=== PATIENT | female | born 1985 | race American Indian/Alaskan Native ===

== ENCOUNTER 2020-10-12 19:56 | Observation (INO) | payer MEDICARE ==
--- NOTE | 2020-10-12 21:14 | Emergency Department Report ---
ED Abdominal Pain HPI - General Chief Complaint: Abdominal Pain Stated Complaint: RIGHT FLANK PAIN PUI?: No Time Seen by Provider: 10/12/20 21:10 Source: patient, EMS Mode of arrival: Wheelchair Limitations: Physical Limitation - History of Present Illness Initial Comments: Patient is a 35-year-old female that presents emergency room with complaints of flank pain, frequent urination, dysuria, fever. Patient states her symptom started 2 days ago. Patient dates her symptoms worsen. Patient states her pain is a 10 out of 10 pain patient denies chills. Patient denies body aches. Patient denies cough. Patient denies respiratory symptoms. Patient denies chest pain or shortness of breath. Patient states that her flank pain and pain is better with rest and worse with movement. Patient denies recent travel. Patient denies recent international travel. Patient denies exposure to the novel coronavirus. Patient denies sick contacts. Patient denies fever and chills. Patient denies cough. Patient denies diarrhea. Patient denies coming in contact with anybody with symptoms of the novel coronavirus. MD Complaint: flank pain -: Sudden, days(s) Location: bilateral flank Radiation: none Migration to: no migration Severity: severe Severity scale (0 -10): 10 Quality: stabbing Consistency: constant Improves With: rest Worsens With: movement Associated Symptoms: fever, dysuria. denies: nausea, vomiting, diarrhea, chills, constipation, hematemesis, hematochezia - Related Data Home Medications Medication Instructions Recorded Confirmed Last Taken glyBURIDE [Diabeta] 10 mg PO BID 01/26/15 04/29/15 Unknown Insulin Aspart (Nf) [NovoLOG 100 22 units SUB-Q BID 04/29/15 04/29/15 04/28/15 UNITS/ML] 22 units Previous Rx's Medication Instructions Recorded Last Taken Type Acetaminophen/Codeine [Tylenol #3] 1 tab PO TID PRN #15 tab 06/23/15 Unknown Rx Clindamycin [Clindamycin CAP] 600 mg PO BID #28 capsule 06/23/15 Unknown Rx Allergies Allergy/AdvReac Type Severity Reaction Status Date / Time No Known Allergies Allergy Verified 04/29/15 04:27 ED Review of Systems ROS: Stated complaint: RIGHT FLANK PAIN Other details as noted in HPI Constitutional: denies: chills, fever Eyes: denies: eye pain, eye discharge, vision change ENT: denies: ear pain, throat pain Respiratory: denies: cough, shortness of breath, wheezing Cardiovascular: denies: chest pain, palpitations Endocrine: no symptoms reported Gastrointestinal: as per HPI. denies: nausea, diarrhea Genitourinary: as per HPI, dysuria, frequency. denies: discharge Musculoskeletal: denies: back pain, joint swelling, arthralgia Skin: denies: rash, lesions Neurological: denies: headache, weakness, paresthesias Psychiatric: denies: anxiety, depression Hematological/Lymphatic: denies: easy bleeding, easy bruising ED Past Medical Hx - Past Medical History Previous Medical History?: Yes Hx Hypertension: No Hx Diabetes: Yes (03/2011) Hx Deep Vein Thrombosis: No Hx Renal Disease: No Hx Sickle Cell Disease: No Hx Seizures: No Hx Asthma: No Hx HIV: No - Surgical History Past Surgical History?: Yes Additional Surgical History: RBKA - Family History Family history: no significant - Social History Smoking Status: Former Smoker Substance Use Type: None - Medications Home Medications: Home Medications Medication Instructions Recorded Confirmed Last Taken Type glyBURIDE [Diabeta] 10 mg PO BID 01/26/15 04/29/15 Unknown History Insulin Aspart (Nf) [NovoLOG 100 22 units SUB-Q BID 04/29/15 04/29/15 04/28/15 History UNITS/ML] 22 units Acetaminophen/Codeine [Tylenol #3] 1 tab PO TID PRN #15 tab 06/23/15 Unknown Rx Clindamycin [Clindamycin CAP] 600 mg PO BID #28 capsule 06/23/15 Unknown Rx ED Physical Exam - General Limitations: Physical Limitation General appearance: alert, in no apparent distress - Head Head exam: Present: atraumatic, normocephalic - Eye Eye exam: Present: normal appearance - ENT ENT exam: Present: mucous membranes moist - Neck Neck exam: Present: normal inspection - Respiratory Respiratory exam: Present: normal lung sounds bilaterally. Absent: respiratory distress - Cardiovascular Cardiovascular Exam: Present: regular rate, normal rhythm. Absent: systolic murmur, diastolic murmur, rubs, gallop - GI/Abdominal GI/Abdominal exam: Present: soft, tenderness (Bilateral flank tenderness.), normal bowel sounds - Rectal Rectal exam: Present: deferred - Extremities Exam Extremities exam: Present: normal inspection - Back Exam Back exam: Present: normal inspection, tenderness, CVA tenderness (R), CVA tenderness (L) - Neurological Exam Neurological exam: Present: alert, oriented X3 - Psychiatric Psychiatric exam: Present: normal affect, normal mood - Skin Skin exam: Present: warm, dry, intact, normal color. Absent: rash ED Course Vital Signs 10/12/20 10/12/20 20:30 23:28 Temperature 100.7 F H 98.5 F Pulse Rate 108 H 99 H Respiratory 18 18 Rate Blood Pressure 142/93 Blood Pressure 108/75 [Left] O2 Sat by Pulse 99 100 Oximetry - Reevaluation(s) Reevaluation #1: Initial valuation done. Patient was given fluids and pain medications and antibiotics. Clinically patient has a pyelonephritis. I discussed plan of care with patient. Patient agrees with plan of care. 10/12/20 21:10 Reevaluation #2: Patient states that the pain is better. Patient's vital signs stable. 10/12/20 22:11 Reevaluation #3: I discussed all results with patient. I discussed plan of care with patient. Patient agrees with plan of care and admission. Patient to be admitted to the hospitalist service. 10/13/20 00:11 - Consultations Consultation #1: Hospitalist consulted for admission. Hospitalist to admit patient. 10/13/20 00:12 ED Medical Decision Making - Lab Data Result diagrams: 10/12/20 20:55 10/12/20 20:55 - Radiology Data Radiology results: report reviewed CT ABDOMEN AND PELVIS WITH CONTRAST INDICATION / CLINICAL INFORMATION: flank pain. TECHNIQUE: Axial CT images were obtained through the abdomen and pelvis after 100 mL Omnipaque [address] scans at this location are performed using CT dose reduction for ALARA by means of automated exposure control. COMPARISON: None available. FINDINGS: LOWER CHEST: No significant abnormality. LIVER: No significant abnormality. BILIARY SYSTEM: No significant abnormality. PANCREAS: No significant abnormality. SPLEEN: No significant abnormality. ADRENALS: No significant abnormality. KIDNEYS and URETERS: There is diffuse urothelial thickening and enhancement throughout both ureters with associated periureteric stranding. The kidneys maintain normal parenchymal enhancement, without evidence for lesion or fluid collection. No radiopaque stones are identified. There are bilateral extrarenal pelvis, but no hydronephrosis. STOMACH / BOWEL: No significant abnormality. PERITONEUM: No free fluid. No free air. No fluid collection. LYMPH NODES: No significant adenopathy. VASCULAR STRUCTURES: No significant abnormality. URINARY BLADDER: There is diffuse wall thickening of the urinary bladder with adjacent stranding. REPRODUCTIVE ORGANS: A 3 cm right adnexal cyst is most likely physiologic. ADDITIONAL FINDINGS: None. SKELETAL SYSTEM: No significant abnormality. IMPRESSION: 1. Findings most compatible with cystitis with ascending urinary tract infection involving the length of both ureters. - Medical Decision Making Patient is a 35-year-old female that presents emergency room with complaints of dysuria, flank pain and fever. Patient's symptoms are worsening prior to coming to the emergency room. Patient given fluids, pain meds and antibiotics and her pain improved and her fever reduced. Patient had labs done which were consistent with a severe UTI and elevated WBC. Patient's chemistry essentially unremarkable except for hyperglycemia. Patient had a CT scan of the abdomen which shows bilateral pyelonephritis. Patient admitted to the hospitalist service for further evaluation and treatment. - Differential Diagnosis Pyelonephritis, UTI, fever, Critical Care Time: Yes Critical care time in (mins) excluding proc time.: 35 Critical care attestation.: If time is entered above; I have spent that time in minutes in the direct care of this critically ill patient, excluding procedure time. Critical Care Time: 35 minutes ED Disposition Clinical Impression: Pyelonephritis, Flank pain, Hyperglycemia UTI (urinary tract infection) Qualifiers: Urinary tract infection type: acute pyelonephritis Qualified Code(s): N10 - Acute pyelonephritis Fever Qualifiers: Fever type: unspecified Qualified Code(s): R50.9 - Fever, unspecified Disposition: DC-09 OP ADMIT IP TO THIS HOSP Is pt being admited?: Yes Does the pt Need Aspirin: No Condition: Critical Instructions: Abdominal Pain (ED) Time of Disposition: 00:08
[2020-10-12] MEDS ORDERED: KETOROLAC 30 MG/1 ML INJ IV ONE (21:16)
[2020-10-12] MEDS ORDERED: HYDROmorphone 1 MG/1 ML INJ IV ONE (21:16)
[2020-10-12] MEDS ORDERED: ONDANSETRON 4 MG/2 ML INJ IV ONE (21:16)
[2020-10-12] MEDS: SODIUM CHLORIDE 0.9% 1000 ML 1,000 ML IV ONE ×2 (21:32→22:20)
[2020-10-12 21:39] LABS: Alanine Aminotransferase 6 units/L (7-56); Blood Urea Nitrogen 9 mg/dL (7-17); Calcium 9.3 mg/dL (8.4-10.2); Hemolysis Index 9
[2020-10-12 21:40] LABS: Bacteria,Urine 1+ /HPF (Negative); Bilirubin,Urine NEG (Negative); Blood,Urine MOD (Negative); Color,Urine Yellow (Yellow); Mucus,Urine FEW /HPF; Urobilinogen,Urine < 2.0 mg/dL (<2.0)
[2020-10-12 21:42] LABS: HCG Qualitative,Urine Negative (Negative); WBC,Urine > 182.0 /HPF (0.0-6.0)
[2020-10-12 21:43] LABS: Basophils % (Auto) 0.3 % (0.0-1.8); Eosinophils % (Auto) 0.2 % (0.0-4.3); Hematocrit 39.3 % (30.3-42.9); Hemoglobin 12.8 gm/dl (10.1-14.3); Lymphocytes # (Auto) 1.7 K/mm3 (1.2-5.4); Lymphocytes % (Auto) 12.1 % (13.4-35.0); Mean Corpuscular HGB Conc 32 % (30-34); Mean Corpuscular Volume 86 fl (79-97); Monocytes # (Auto) 0.9 K/mm3 (0.0-0.8); Monocytes % (Auto) 6.6 % (0.0-7.3); Platelet Count 395 K/mm3 (140-440); Red Blood Count 4.56 M/mm3 (3.65-5.03); Red Cell Distribution Width 13.9 % (13.2-15.2)
[2020-10-12 21:49] LABS: BUN/Creatinine Ratio 15
[2020-10-12] MEDS ORDERED: PIPERACIL/TAZOBACTA 4.5/NS 100 4.5 GM/100 ML VIAL IV ONE (22:10)
--- NOTE | 2020-10-12 23:09 | Cat Scan Report ---
CT ABDOMEN AND PELVIS WITH CONTRAST INDICATION / CLINICAL INFORMATION: flank pain. TECHNIQUE: Axial CT images were obtained through the abdomen and pelvis after 100 mL Omnipaque [address] scans at this location are performed using CT dose reduction for ALARA by means of automated exposure control. COMPARISON: None available. FINDINGS: LOWER CHEST: No significant abnormality. LIVER: No significant abnormality. BILIARY SYSTEM: No significant abnormality. PANCREAS: No significant abnormality. SPLEEN: No significant abnormality. ADRENALS: No significant abnormality. KIDNEYS and URETERS: There is diffuse urothelial thickening and enhancement throughout both ureters w ith associated periureteric stranding. The kidneys maintain normal parenchymal enhancement, without e vidence for lesion or fluid collection. No radiopaque stones are identified. There are bilateral extr arenal pelvis, but no hydronephrosis. STOMACH / BOWEL: No significant abnormality. PERITONEUM: No free fluid. No free air. No fluid collection. LYMPH NODES: No significant adenopathy. VASCULAR STRUCTURES: No significant abnormality. URINARY BLADDER: There is diffuse wall thickening of the urinary bladder with adjacent stranding. REPRODUCTIVE ORGANS: A 3 cm right adnexal cyst is most likely physiologic. ADDITIONAL FINDINGS: None. SKELETAL SYSTEM: No significant abnormality. IMPRESSION: 1. Findings most compatible with cystitis with ascending urinary tract infection involving the length of both ureters. Signer Name: Zena Mar MD Signed: 10/12/2020 11:05 PM Workstation Name: [id number]
[2020-10-13] MEDS ORDERED: ONDANSETRON 4 MG/2 ML INJ IV PRN (01:52)
[2020-10-13] MEDS ORDERED: ACETAMINOPHEN 500 MG TAB PO PRN (01:53)
[2020-10-13] MEDS ORDERED: DEXTROSE 50% IN WATER (25GM) 50 ML SYRINGE IV PRN (01:54)
[2020-10-13] MEDS: SODIUM CHLORIDE 0.9% 1000 ML 1,000 ML IV SCH ×2 (03:27→10:50)
[2020-10-13] MEDS: HEPARIN 5,000 UNIT/1 ML VIAL SUB-Q SCH ×2 (03:30→09:54)
[2020-10-13] MEDS: MORPHINE 2 MG/1 ML INJ IV PRN ×3 (03:40→15:29)
[2020-10-13] MEDS: PIPERACIL/TAZOBACTA 4.5/NS 100 4.5 GM/100 ML VIAL IV SCH ×2 (05:45→13:03)
[2020-10-13] MEDS ORDERED: PIPERACILLIN/TAZOBACTAM 3.375 3.375 GM/50 ML BAG IV SCH (06:00)
--- NOTE | 2020-10-13 06:35 | History and Physical Report ---
History of Present Illness Date of examination: 10/13/20 Date of admission: 10/13/20 00:18 Chief complaint: FLANK PAIN History of present illness: History of presenting illness, patient is a 35-year-old female who presented to the emergency room with 2-day history of flank pain associated with dysuria and fever, patient said she has been having frequent painful urination, there is no history of nausea or vomiting. Patient also denied history of shortness of jennifer ath cough chest pain or body ache Past History Past Medical History: diabetes Past Surgical History: No surgical history Social history: no significant social history Family history: no significant family history Medications and Allergies Allergies Allergy/AdvReac Type Severity Reaction Status Date / Time No Known Allergies Allergy Verified 04/29/15 04:27 Home Medications Medication Instructions Recorded Confirmed Last Taken Type glyBURIDE [Diabeta] 10 mg PO BID 01/26/15 10/13/20 Unknown History Insulin Aspart (Nf) [NovoLOG 100 22 units SUB-Q BID 04/29/15 10/13/20 04/28/15 History UNITS/ML] 22 units Acetaminophen/Codeine [Tylenol #3] 1 tab PO TID PRN #15 tab 06/23/15 10/13/20 Unknown Rx Clindamycin [Clindamycin CAP] 600 mg PO BID #28 capsule 06/23/15 10/13/20 Unknown Rx Active Meds: Active Medications Acetaminophen (Tylenol) 500 mg PO Q4H PRN PRN Reason: Fever >101 Dextrose (D50w (25gm) Syringe) 50 ml IV Q30MIN PRN; Protocol PRN Reason: Hypoglycemia Heparin Sodium (Porcine) (Heparin) 5,000 unit SUB-Q Q12HR [place] Last Admin: 10/13/20 03:30 Dose: 5,000 unit Documented by: Sodium Chloride (Nacl 0.9% 1000 Ml) 1,000 mls @ 125 mls/hr IV DIRECT [place] Last Admin: 10/13/20 03:27 Dose: 125 mls/hr Documented by: Piperacillin Sod/Tazobactam Sod (Zosyn/Ns 4.5gm/100ml) 4.5 gm in 100 mls @ 200 mls/hr IV Q8HR [place]; Protocol Last Admin: 10/13/20 05:45 Dose: 200 mls/hr Documented by: Insulin Human Regular (Humulin R) 0 unit SUB-Q AC [place]; Protocol Insulin Human Regular (Humulin R) 0 unit SUB-Q QHS [place]; Protocol Morphine Sulfate (Morphine) 2 mg IV Q3H PRN PRN Reason: Pain, Moderate (4-6) Last Admin: 10/13/20 03:40 Dose: 2 mg Documented by: Ondansetron HCl (Zofran) 4 mg IV Q8H PRN PRN Reason: Nausea And Vomiting Review of Systems Constitutional: fever, chills, no sweats, no weakness, no malaise Eyes: bilateral: other (NO BILATERAL EYE SYMPTOMS) Ears, nose, mouth and throat: no ear pain Breasts: deferred Cardiovascular: no chest pain, no palpitations, no lightheadedness, no shortness of breath Respiratory: no cough, no hemoptysis, no shortness of breath Gastrointestinal: no nausea, no vomiting, no diarrhea, no constipation, no hematemesis, no heartburn Menstruation: no postmenopausal Rectal: no pain, no incontinence Musculoskeletal: no neck pain Integumentary: no rash, no pruritis, no redness, no sores, no jaundice Neurological: no paralysis, no weakness, no parathesias, no numbness, no ting ling, no seizures, no vertigo, no headaches, no migraines Psychiatric: no anxiety, no depression Endocrine: polyuria, no polyphagia, no nocturia Hematologic/Lymphatic: no easy bruising, no lymphadenopathy Exam - Constitutional Vitals: Temp Pulse Resp BP Pulse Ox 99.8 F H 100 H 18 125/83 95 10/13/20 05:48 10/13/20 05:48 10/13/20 05:48 10/13/20 05:48 10/13/20 05:48 General appearance: Present: mild distress - EENT Eyes: Present: PERRL, EOM intact ENT: hearing intact, clear oral mucosa, dentition normal - Neck Neck: Present: supple - Respiratory Respiratory effort: normal - Cardiovascular Rhythm: regular Heart Sounds: Present: S1 & S2. Absent: gallop, systolic murmur, diastolic murmur, click - Extremities Extremities: no ischemia, No edema Peripheral Pulses: within normal limits - Abdominal General gastrointestinal: Present: soft, non-tender, non-distended. Absent: tender, distended, rigid, mass Female genitourinary: Present: deferred - Rectal Rectal Exam: deferred - Integumentary Integumentary: Present: clear, warm, dry. Absent: erythema, jaundice - Musculoskeletal Musculoskeletal: strength equal bilaterally - Psychiatric Psychiatric: appropriate mood/affect HEART Score - HEART Score Risk factors: No known risk factors Troponin: < normal limit - Critical Actions Critical Actions: 0-3 pts:0.9-1.7%risk of adverse cardiac event.Candidate for discharge Results - Labs CBC & Chem 7: 10/12/20 20:55 10/12/20 20:55 Labs: Laboratory Last Values WBC 14.1 K/mm3 (4.5-11.0) H 10/12/20 20:55 RBC 4.56 M/mm3 (3.65-5.03) 10/12/20 20:55 Hgb 12.8 gm/dl (10.1-14.3) 10/12/20 20:55 Hct 39.3 % (30.3-42.9) 10/12/20 20:55 MCV 86 fl (79-97) 10/12/20 20:55 MCH 28 pg (28-32) 10/12/20 20:55 MCHC 32 % (30-34) 10/12/20 20:55 RDW 13.9 % (13.2-15.2) 10/12/20 20:55 Plt Count 395 K/mm3 (140-440) 10/12/20 20:55 Lymph % (Auto) 12.1 % (13.4-35.0) L 10/12/20 20:55 Nicholas % (Auto) 6.6 % (0.0-7.3) 10/12/20 20:55 Eos % (Auto) 0.2 % (0.0-4.3) 10/12/20 20:55 Baso % (Auto) 0.3 % (0.0-1.8) 10/12/20 20:55 Lymph # (Auto) 1.7 K/mm3 (1.2-5.4) 10/12/20 20:55 Nicholas # (Auto) 0.9 K/mm3 (0.0-0.8) H 10/12/20 20:55 Eos # (Auto) 0.0 K/mm3 (0.0-0.4) 10/12/20 20:55 Baso # (Auto) 0.0 K/mm3 (0.0-0.1) 10/12/20 20:55 Seg Neutrophils % 80.8 % (40.0-70.0) H 10/12/20 20:55 Seg Neutrophils # 11.4 K/mm3 (1.8-7.7) H 10/12/20 20:55 Sodium 137 mmol/L (137-145) 10/12/20 20:55 Potassium 3.8 mmol/L (3.6-5.0) 10/12/20 20:55 Chloride 97.1 mmol/L (98-107) L 10/12/20 20:55 Carbon Dioxide 24 mmol/L (22-30) 10/12/20 20:55 Anion Gap 20 mmol/L 10/12/20 20:55 BUN 9 mg/dL (7-17) 10/12/20 20:55 Creatinine 0.6 mg/dL (0.6-1.2) 10/12/20 20:55 Estimated GFR > 60 ml/min 10/12/20 20:55 BUN/Creatinine Ratio 15 % 10/12/20 20:55 Glucose 344 mg/dL (65-100) H 10/12/20 20:55 POC Glucose 293 mg/dL (70-105) H 10/13/20 02:15 Calcium 9.3 mg/dL (8.4-10.2) 10/12/20 20:55 Total Bilirubin 0.40 mg/dL (0.1-1.2) 10/12/20 20:55 AST 9 units/L (5-40) 10/12/20 20:55 ALT 6 units/L (7-56) L 10/12/20 20:55 Alkaline Phosphatase 87 units/L (35-129) 10/12/20 20:55 Total Protein 7.1 g/dL (6.3-8.2) 10/12/20 20:55 Albumin 4.0 g/dL (3.9-5) 10/12/20 20:55 Albumin/Globulin Ratio 1.3 % 10/12/20 20:55 Urine Color Yellow (Yellow) 10/12/20 20:56 Urine Turbidity Cloudy (Clear) 10/12/20 20:56 Urine pH 6.0 (5.0-7.0) 10/12/20 20:56 Ur Specific [place] 1.018 (1.003-1.030) 10/12/20 20:56 Urine Protein 100 mg/dl mg/dL (Negative) 10/12/20 20:56 Urine Glucose (UA) >=500 mg/dL (Negative) 10/12/20 20:56 Urine Ketones Tr mg/dL (Negative) 10/12/20 20:56 Urine Blood Mod (Negative) 10/12/20 20:56 Urine Nitrite Neg (Negative) 10/12/20 20:56 Urine Bilirubin Neg (Negative) 10/12/20 20:56 Urine Urobilinogen < 2.0 mg/dL (<2.0) 10/12/20 20:56 Ur Leukocyte Esterase Lg (Negative) 10/12/20 20: Urine WBC (Auto) > 182.0 /HPF (0.0-6.0) H 10/12/20 20:56 Urine RBC (Auto) 9.0 /HPF (0.0-6.0) 10/12/20 20:56 U Epithel Cells (Auto) 9.0 /HPF (0-13.0) 10/12/20 20:56 Urine Bacteria (Auto) 1+ /HPF (Negative) 10/12/20 20:56 Urine Mucus Few /HPF 10/12/20 20:56 Urine Yeast (Budding) 2+ /HPF 10/12/20 20:56 Urine HCG, Qual Negative (Negative) 10/12/20 20:56 Iraheta/IV: Voiding Method Toilet IV Catheter Type [Right INT / Saline Lock Antecubital] Assessment and Plan - Patient Problems (1) Diabetes mellitus Current Visit: Yes Status: Acute Plan to address problem: 1. ACCU CHECK 2. SLIDING SCALE INSULIN COVERAGE 3. CONSISTENT CARBOHYDRATE DIET (2) Pyelonephritis Current Visit: Yes Status: Acute Plan to address problem: 1. I.V ZOSYN ANTIBIOTIC 2. 1.V NORMAL SALINE FLUID 3. TYLENOL PO FOR FEVER 4.
[2020-10-13] MEDS: INSULIN REGULAR, HUMAN 100 UNIT/ML 3ML VIAL SUB-Q SCH ×2 (07:57→11:28)
[2020-10-13 08:00] VITALS: BP 117/78
--- NOTE | 2020-10-13 09:55 | Event Note ---
Date: 10/13/20 Patient 35-year-old presents with 2-day history of right flank pain associated with fever dysuria radiating to the groin occasionally. Associated with burning with urination low-grade fever. Work-up in ED patient found to have leukocytosis of 14 and pyuria and urine as well as a T-max of 99.8. Patient admitted for pyelonephritis started on Zosyn. Patient had associated supportive care pain control antipyretics IV hydration. Patient also found to have uncontrolled diabetes we placed on sliding scale insulin and also back on her home medications of insulin 70/30 22 units twice daily. Patient is able to tolerate p.o. now. We will also obtain hemoglobin A1c.
[2020-10-13] MEDS ORDERED: glyBURIDE 5 MG TAB PO SCH (10:00)
[2020-10-13] MEDS ORDERED: INSULIN ASPART 22 UNIT SUB-Q SCH (10:00)
--- NOTE | 2020-10-13 12:46 | Discharge Summary ---
Providers - Providers Date of Admission: 10/13/20 00:18 Date of discharge: 10/20/20 Attending physician: BUZZ RODRIGUEZ None Primary care physician: SUPERVISOR [employer] Hospitalization Condition: Critical Hospital course: Patient presented with uncontrolled blood sugar pyelonephritis some flank pain resolved after less than 24 hours. Patient persistent about discharge. Did not have any fever. Pain was controlled. Flank pain resolved. Since still persistent about discharge will discharge patient with antibiotics for 10 days and follow with primary care physician. Patient states her sugars are elevated because she cannot take her medications because she felt nausea this is since resolved. Disposition: DC-01 TO HOME OR SELFCARE - Discharge Diagnoses (1) Diabetes mellitus Status: Acute (2) Pyelonephritis Status: Acute Comment: Levaquin 500 for 10 days. Core Measure Documentation - Palliative Care Palliative Care/ Comfort Measures: Not Applicable - Core Measures Any of the following diagnoses?: none Exam - Constitutional Vitals: Temp Pulse Resp BP Pulse Ox 98.2 F 93 H 18 117/78 94 10/13/20 07:55 10/13/20 07:55 10/13/20 07:55 10/13/20 07:55 10/13/20 07:55 General appearance: Present: no acute distress, well-nourished - EENT Eyes: Present: PERRL ENT: hearing intact, clear oral mucosa - Neck Neck: Present: supple, normal ROM - Respiratory Respiratory effort: normal Respiratory: bilateral: CTA - Cardiovascular Heart Sounds: Present: S1 & S2. Absent: rub, click - Extremities Extremities: pulses symmetrical, No edema Peripheral Pulses: within normal limits - Abdominal General gastrointestinal: Present: soft, non-tender, non-distended, normal bowel sounds Female genitourinary: Present: normal - Integumentary Integumentary: Present: clear, warm, dry - Musculoskeletal Musculoskeletal: gait normal, strength equal bilaterally - Psychiatric Psychiatric: appropriate mood/affect, intact judgment & insight - Neurologic Neurologic: CNII-XII intact, moves all extremities Plan Activity: no restrictions, other (Consistent with right leg amputation.) Weight Bearing Status: Full Weight Bearing Diet: diabetic Follow up with: PRIMARY CARE, [Primary Care Provider] - 3-5 Days Prescriptions: Insulin Lispro [Humalog] 22 unit SUB-Q BIDDIAB #1 vial
[2020-10-13] MEDS ORDERED: levoFLOXacin 500 MG TAB PO SCH (13:00)
[2020-10-13] MEDS ORDERED: INSULIN LISPRO 100 UNIT/ML VIAL 3 mL SUB-Q SCH (17:00)
[2020-10-13] MEDS ORDERED: INSULIN REGULAR, HUMAN 100 UNIT/ML 3ML VIAL SUB-Q SCH (22:00)
== END 2020-10-13 16:55 | disposition home or self-care (01) ==
LOC: ED 19:56 → 4A 10-13 00:18
PROVIDERS: ADMIT Internal Medicine; ATTEND Internal Medicine
DX: N12 Tubulo-interstitial nephritis, not specified as acute or chronic (principal); E11.65 Type 2 diabetes mellitus with hyperglycemia; Z89.511 Acquired absence of right leg below knee; Z87.891 Personal history of nicotine dependence; Z79.4 Long term (current) use of insulin
CPT/HCPCS: 36415; 74177; 80053; 81001; 81025; 82962; 85025; 96361; 96365; 96366; 96372; 96375; 96376; 99291; G0378; J1170; J1644; J1885; J2270; J2405; J2543; J7030; Q9967; J1815